=== PATIENT | male | born 1940 | race Caucasian/White ===

== ENCOUNTER 2016-07-30 14:27 | Observation (INO) | payer MEDICARE ==
[2016-07-30] MEDS ORDERED: PROPOFOL INJ 200 MG/20 ML VIAL IV ONE ×3 (15:01→16:44)
[2016-07-30] MEDS ORDERED: ONDANSETRON HCL INJ/PF 4 MG/2 ML SDV IV ONE (15:03)
--- NOTE | 2016-07-30 15:04 | RADIOLOGY REPORT (SQ) ---
EXAM DESCRIPTION: PELVIS AP COMPLETED DATE/TIME: 07/30/2016 2:52 pm REASON FOR STUDY: right hip COMPARISON: None. NUMBER OF VIEWS: One view TECHNIQUE: AP Pelvis LIMITATIONS: None. FINDINGS: MINERALIZATION: Normal. HIPS: Dislocation of the right hip prosthesis. Left prosthesis in anatomic alignment. PELVIS AND SACRUM: No acute fracture or dislocation. No worrisome bone lesions. PUBIS AND ISCHIUM: No acute fracture. LOWER LUMBAR SPINE: No significant findings as visualized. SOFT TISSUES: No findings. OTHER: No other significant finding. IMPRESSION: Dislocated right hip prosthesis. TECHNICAL DOCUMENTATION: JOB ID: [id number] [employer] [facility] [employer]- All Rights Reserved
[2016-07-30] MEDS ORDERED: PROPOFOL 100 ML IV ONE (15:05)
--- NOTE | 2016-07-30 15:05 | RADIOLOGY REPORT (SQ) ---
EXAM DESCRIPTION: CHEST SINGLE VIEW COMPLETED DATE/TIME: 07/30/2016 2:52 pm REASON FOR STUDY: fall COMPARISON: None. EXAM PARAMETERS: NUMBER OF VIEWS: One view. TECHNIQUE: Single frontal radiographic view of the chest acquired. RADIATION DOSE: NA LIMITATIONS: None. FINDINGS: LUNGS AND PLEURA: No opacities, masses or pneumothorax. No pleural effusion. MEDIASTINUM AND HILAR STRUCTURES: No masses. Contour normal. HEART AND VASCULAR STRUCTURES: Heart normal in size. Normal vasculature. BONES: No acute findings. HARDWARE: None in the chest. OTHER: No other significant finding. IMPRESSION: NO ACUTE RADIOGRAPHIC FINDING IN THE CHEST. TECHNICAL DOCUMENTATION: JOB ID: [id number]
--- NOTE | 2016-07-30 16:26 | ER Document Report ---
ED General - General Chief Complaint: Hip Injury Stated Complaint: HIP INJURY Time Seen by Provider: 07/30/16 14:31 Mode of Arrival: Ambulatory Information source: Patient Notes: This is a 75-year-old man with a history of Parkinson's disease and bilateral total hip replacements who presents to the emergency room with dislocation of the right hip. Patient does have a history of the left hip dislocation that required him to go to the operating room for relocation (this occurred in [place]). Patient and his are visiting from out of town. - HPI Onset: Just prior to arrival Onset/Duration: Sudden Quality of pain: Dull Severity: Moderate Pain Level: 3 Associated symptoms: denies: Chills, Fever, Shortness of breath Exacerbated by: Movement Relieved by: Denies Similar symptoms previously: Yes Recently seen / treated by doctor: Yes Past Medical History - General Information source: Patient - Social History Smoking Status: Unknown if Ever Smoked Cigarette use (# per day): No Chew tobacco use (# tins/day): No Frequency of alcohol use: None Drug Abuse: None Lives with: Family Family History: Reviewed & Not Pertinent Patient has suicidal ideation: No Patient has homicidal ideation: No - Past Medical History Cardiac Medical History: Reports: None Neurological Medical History: Reports: Other - Parkinson's disease Endocrine Medical History: Reports: None Renal/ Medical History: Reports: None Malignancy Medical History: Reports None GI Medical History: Reports: None Musculoskeltal Medical History: Reports None Skin Medical History: Reports None Psychiatric Medical History: Reports: None Traumatic Medical History: Reports: None Infectious Medical History: Reports: None Past Surgical History: Reports: Hx Orthopedic Surgery Review of Systems - Review of Systems Constitutional: denies: Chills, Fever EENT: No symptoms reported Cardiovascular: No symptoms reported Respiratory: No symptoms reported Gastrointestinal: No symptoms reported Genitourinary: No symptoms reported Male Genitourinary: No symptoms reported Musculoskeletal: See HPI Skin: No symptoms reported Hematologic/Lymphatic: No symptoms reported Neurological/Psychological: No symptoms reported Physical Exam - Vital signs Vitals: Temp Pulse Resp BP Pulse Ox 98.8 F 80 12 158/59 H 96 07/30/16 14:30 07/30/16 14:30 07/30/16 14:30 07/30/16 14:30 07/30/16 14:30 Notes: Physical exam: GENERAL: 5-year-old man, alert and oriented 3, lying in stretcher HEAD: Atraumatic, normocephalic. EYES: Pupils equal round and reactive to light, extraocular movements intact, sclera anicteric, conjunctiva are normal. ENT: TMs normal, nares patent, oropharynx clear without exudates. Moist mucous membranes. NECK: Normal range of motion, supple without lymphadenopathy or JVD. LUNGS: Breath sounds clear to auscultation bilaterally and equal. No wheezes rales or rhonchi. HEART: Regular rate and rhythm without murmurs, rubs or gallops. ABDOMEN: Soft, normoactive bowel sounds. No tenderness to palpation. No guarding, no rebound. No masses appreciated. EXTREMITIES: Right hip deformity. Skin is clear. Distal dorsal pedal pulses 2+ . Sensation to the foot is good NEUROLOGICAL: Cranial nerves II through XII grossly intact. Normal speech, PSYCH: Normal mood, normal affect. SKIN: Warm, Dry, normal turgor, no rashes or lesions noted. Course - Re-evaluation Re-evalutation: 15:[address] Ma who has been consulted. Multiple attempts at right hip relocation were unsuccessful after conscious sedation with propofol (250 mg). 07/30/16 16:27 07/30/16 18:40 Procedure note: Patient given deep sedation by myself with Propofol. Dr Ma was present and performed successful reduction of the right hip. Patient tolerated the procedure well. I did assist with ventilations for a short period of time. Patient did wake up and feels significantly better and was placed in an abduction pillow. There are some logistical issues regarding the patient (he is here on vacation and then they did not they do not have a brace or wheelchair), will bring him in for observation overnight. Dr. ma will work on getting him a brace before discharge tomorrow. I have discussed the plan with Dr. ma. 07/30/16 20:47 - Vital Signs Vital signs: Temp Pulse Resp BP Pulse Ox 98.8 F 100 13 133/89 H 98 07/30/16 14:30 07/30/16 16:50 07/30/16 20:00 07/30/16 20:00 07/30/16 20:00 Procedures - Conscious Sedation Conscious sedation Time started: 15:05 Time completed: 15:35 Consent obtained: Yes Prior complications: Procedural sedation Pt with a mild systemic disease.: P2. - ASA Classification. Airway Evaluation: Normal anatomy Mallampati Classification: Class 2 Used during procedure: Suction available, IV access obtained, Pulse ox on pt., sweatband separator on pt. Medications administered: Diprivan Reversal agents: None I personally performed/intraservice time: Sedation, 31-45 min Complications: No Notes: The right hip relocation was not successful Critical Care Note - Critical Care Note Total time excluding time spent on procedures (mins): 60 Discharge - Discharge Clinical Impression: Right hip dislocation Condition: Stable Disposition: ADMITTED INPATIENT Admitting Provider: Dr Ma Unit Admitted: Surgical Floor
--- NOTE | 2016-07-30 17:08 | RADIOLOGY REPORT (SQ) ---
EXAM DESCRIPTION: HIP UNILATERAL-1 VIEW COMPLETED DATE/TIME: 07/30/2016 4:49 pm REASON FOR STUDY: POSITION OF DISLOCATION COMPARISON: None. NUMBER OF VIEWS: One view. TECHNIQUE: AP portable supine cross-table view of the right hip. LIMITATIONS: None. FINDINGS: Anterior dislocation of hip prosthesis. IMPRESSION: Anterior dislocation. TECHNICAL DOCUMENTATION: JOB ID: [id number] [employer]- All Rights Reserved
--- NOTE | 2016-07-30 18:29 | RADIOLOGY REPORT (SQ) ---
EXAM DESCRIPTION: PELVIS AP COMPLETED DATE/TIME: 07/30/2016 5:52 pm REASON FOR STUDY: P/R RT HIP DX COMPARISON: Earlier the same day. NUMBER OF VIEWS: One view TECHNIQUE: AP Pelvis LIMITATIONS: None. FINDINGS: Right hip dislocation has been reduced. No fracture identified. IMPRESSION: Successful closed reduction. TECHNICAL DOCUMENTATION: JOB ID: [id number] [employer]- All Rights Reserved
[2016-07-30 21:07] LABS: ABSOLUTE BASOPHILS # (AUTO) 0.1 10^3/uL (0.0-0.2); ABSOLUTE LYMPHOCYTES (AUTO) 1.3 10^3/uL (0.5-4.7); ABSOLUTE MONOCYTES (AUTO) 0.9 10^3/uL (0.1-1.4); ABSOLUTE NEUT (AUTO) 9.3 10^3/uL (1.7-8.2); BASOPHILS % (AUTO) 0.5 % (0-2); EOSINOPHILS % (AUTO) 0.1 % (0-6); HEMATOCRIT 41.7 % (37.9-51.0); HEMOGLOBIN 14.2 g/dL (13.5-17.0); HGB HCT DIFFERENCE 0.9; LYMPHOCYTES % (AUTO) 10.9 % (13-45); MEAN CORPUSCULAR HEMOGLOBIN 30.8 pg (27.0-33.4); MEAN CORPUSCULAR HGB CONC 34.1 g/dL (32.0-36.0); MEAN CORPUSCULAR VOLUME 90 fl (80-97); MONOCYTES % (AUTO) 7.9 % (3-13); RED BLOOD COUNT 4.61 10^6/uL (4.35-5.55); RED CELL DISTRIBUTION WIDTH 13.4 % (11.5-14.0); SEGMENTED NEUTROPHILS % (AUTO) 80.6 % (42-78); WHITE BLOOD COUNT 11.6 10^3/uL (4.0-10.5)
[2016-07-30 21:18] LABS: ALANINE AMINOTRANSFERASE 17 U/L (21-72); ALBUMIN 3.8 g/dL (3.5-5.0); ALKALINE PHOSPHATASE 65 U/L (38-126); ANION GAP 10 (5-19); ASPARTATE AMINO TRANSFERASE 18 U/L (17-59); BILIRUBIN,DIRECT 0.3 mg/dL (0.0-0.4); BILIRUBIN,TOTAL 1.3 mg/dL (0.2-1.3); BLOOD UREA NITROGEN 14 mg/dL (7-20); CALCIUM 8.6 mg/dL (8.4-10.2); CARBON DIOXIDE 22 mmol/L (22-30); CHLORIDE 108 mmol/L (98-107); CREATININE RESULT 0.77 mg/dL (0.52-1.25); GLUCOSE 114 mg/dL (75-110); POTASSIUM 3.9 mmol/L (3.6-5.0); SODIUM 140.4 mmol/L (137-145); TOTAL PROTEIN 6.7 g/dL (6.3-8.2)
[2016-07-30] MEDS ORDERED: OXYCODONE-ACETAMINOPHEN 5-325 MG TABLET PO PRN (22:19)
[2016-07-30] MEDS ORDERED: CARBIDOPA/LEVODOPA 25-100 MG TABLET PO ONE (23:00)
[2016-07-30] MEDS ORDERED: DONEPEZIL HCL 5 MG TABLET PO ONE (23:15)
[2016-07-31] MEDS ORDERED: CARBIDOPA/LEVODOPA 25-100 MG TABLET PO SCH (06:00)
[2016-07-31 13:26] VITALS: BP 125/91
[2016-07-31] MEDS ORDERED: DONEPEZIL HCL 5 MG TABLET PO SCH (22:00)
--- NOTE | 2016-09-25 12:48 | PDOC H&P ---
History of Present Illness Admission Date/PCP: 07/30/16 21:40 History of Present Illness: AYAAN VILLASENOR is a 75 year old male Who is from out of town vacationing here in [facility] when he tripped and fell and dislocated his right total hip prosthesis. Complains of inability to weight- bear. Complains of right hip pain. Denies any numbness or tingling or paresthesias. Patient has significant Parkinson's. Pain currently is 10 out of 10. Patient has undergone to close reduction attempts by the emergency physician with no success. Past Medical History Cardiac Medical History: Reports: None Neurological Medical History: Reports: Other - Parkinson's disease Endocrine Medical History: Reports: None Renal/ Medical History: Reports: None Malignancy Medical History: Reports: None GI Medical History: Reports: None Musculoskeltal Medical History: Reports: None Skin Medical History: Reports: None Psychiatric Medical History: Reports: None Traumatic Medical History: Reports: None Infectious Medical History: Reports: None Past Surgical History Past Surgical History: Reports: Orthopedic Surgery Social History Lives with: Family Smoking Status: Never Smoker Drugs: None - Advance Directive Resuscitation Status: Full Code Family History Family History: Reviewed & Not Pertinent Parental Family History Reviewed: No Children Family History Reviewed: No Sibling(s) Family History Reviewed.: No Medication/Allergy Home Medications: Carbidopa/Levodopa [Sinemet 25-100 mg Tablet] 6 tab PO DAILY 07/31/16 Donepezil HCl [Aricept] 10 mg PO QHS 07/31/16 Allergies/Adverse Reactions: No Known Allergies Allergy (Unverified 07/30/16 21:40) Review of Systems All systems: reviewed and no additional remarkable complaints except as stated Physical Exam Vital Signs: Temp Pulse Resp BP Pulse Ox 36.2 C 94 18 125/91 H 99 07/31/16 13:23 07/31/16 13:23 07/31/16 13:23 07/31/16 13:23 07/31/16 13:23 General appearance: PRESENT: no acute distress Respiratory exam: PRESENT: symmetrical, unlabored. ABSENT: accessory muscle use , tachypnea Adult Front & Back Image: 1 - Shortened and internally rotated right lower extremity. Neurovascular intact. Pain with any attempted range of motion. Post reduction exam shows limb lengths to be grossly equal and stable at 0-90 of hip flexion. Results Impressions: Hip X-Ray 07/30/16 00:00 IMPRESSION: Anterior dislocation. Chest X-Ray 07/30/16 14:39 IMPRESSION: NO ACUTE RADIOGRAPHIC FINDING IN THE CHEST. Pelvis X-Ray 07/30/16 18:15 IMPRESSION: Successful closed reduction. Assessment & Plan - Plan Summary Plan Summary: 75-year-old Parkinson patient with a right hip dislocation status post reduction. Patient will be kept overnight for observation and discharge in the morning after he obtains his a hip abduction brace.
--- NOTE | 2016-09-25 12:55 | PDOC DISCHARGE SUMMARY ---
General - Admit/Disc Date/PCP Admission Date/Primary Care Provider: 07/30/16 21:40 Discharge Date: 07/31/16 - Discharge Diagnosis (1) S/P closed reduction of dislocated total hip prosthesis Is this a current diagnosis for this admission?: Yes (2) Dislocation of internal right hip prosthesis, initial encounter Is this a current diagnosis for this admission?: Yes - Additional Information Resuscitation Status: Full Code Discharge Activity: Activity As Tolerated, Balance Activity w/Rest, Slowly Increase Activity, Supervised Activity Home Medications: Carbidopa/Levodopa [Sinemet 25-100 mg Tablet] 6 tab PO DAILY 07/31/16 Donepezil HCl [Aricept] 10 mg PO QHS 07/31/16 History of Present Illness Patient complains of: Right hip pain status post dislocation History of Present Illness: 75-year-old Parkinson patient from outside of came in with a dislocated right hip and significant pain. Patient underwent closed reduction of his right hip in the ER last night and was kept overnight for observation and for him to receive his hip abduction brace. Patient's pain was well controlled not require any IV medication. Doing well this morning and ready to go home. Hospital Course Hospital Course: Patient stayed overnight with no issues. Vital signs were stable. Pain was adequately controlled and patient was placed in a hip abduction brace. Patient is out of bed in the chair doing very well. Ready be discharged today. Physical Exam Vital Signs: Temp Pulse Resp BP Pulse Ox 36.2 C 94 18 125/91 H 99 07/31/16 13:23 07/31/16 13:23 07/31/16 13:23 07/31/16 13:23 07/31/16 13:23 General appearance: PRESENT: no acute distress Adult Front & Back Image: 1 - Lower extremities are grossly equal. No evidence of redislocation. He is neurovascular intact distally. Brace is placed in the fitting him properly. Results Impressions: Hip X-Ray 07/30/16 00:00 IMPRESSION: Anterior dislocation. Chest X-Ray 07/30/16 14:39 IMPRESSION: NO ACUTE RADIOGRAPHIC FINDING IN THE CHEST. Pelvis X-Ray 07/30/16 18:15 IMPRESSION: Successful closed reduction. Status: Image reviewed by me Plan Discharge Plan: Patient will return back to home and his vacation and be seen by his orthopedic surgeon in 1-2 weeks.
== END 2016-07-31 14:10 | disposition home or self-care (01) ==
LOC: ER 14:27 → UNDOADMOB 19:12 → INTOOBSV 19:12 → EH 19:12 → 4W 21:15 → EH 21:40
PROVIDERS: ADMIT Orthopaedic Surgery; ATTEND Orthopaedic Surgery
PROC: 0SS9XZZ Reposition Right Hip Joint, External Approach (ICD-10-PCS; principal; 2016-07-30)
PROC: 0SS9XZZ Reposition Right Hip Joint, External Approach (ICD-10-PCS; 2016-07-30)
DX: T84.020A Dislocation of internal right hip prosthesis, initial encounter (principal); W01.0XXA Fall on same level from slipping, tripping and stumbling without subsequent striking against object, initial encounter; G20 Parkinson's disease; Z79.899 Other long term (current) drug therapy
CPT/HCPCS: 27250 ×2; 99291; 99153; 99152; 96374; 36415; 85025; 80053; 73501; 71010; 72170; 97163; G0378 ×2; A9270; J2405; J2704; G8978; G8979; J3490